=== PATIENT | female | born 1930 | race African-American/Black ===

== ENCOUNTER 2017-08-23 07:57 | Day surgery (SDC) | payer MEDICARE, MEDICAID ==
[2017-08-22 13:04] VITALS: BMI 22.6
[2017-08-23] MEDS ORDERED: CEFAZOLIN/Water 2 GM/20 ML SYRINGE ONE (08:44)
[2017-08-23] MEDS ORDERED: PROPOFOL 200 MG/20 ML VIAL ONE (15:07)
--- NOTE | 2017-08-24 13:50 | OP ---
DATE OF SURGERY: 08/23/2017 OPERATIVE PROCEDURE: Esophagogastroduodenoscopy with endoscopic gastrostomy tube placed. PREOPERATIVE DIAGNOSES: Dysphagia, failure to thrive, weight loss, severe dehydration. POSTOPERATIVE DIAGNOSES: 1. Gastric ulcer. 2. Successful placement of gastrostomy tube. PROCEDURE IN DETAIL: The patient was placed on her back and was given sedation by Anesthesia Departm ent. Also, the throat was anesthetized with Cetacaine spray. Then, the patient received IV antibiot ic before the procedure. A Pentax video gastroscope passed the upper esophageal sphincter into stoma ch and subsequently descending duodenum. The esophageal mucosa appeared normal. The GE junction, no pathology seen. The patient had a hiatal hernia. The fundus, cardia, gastric body, and gastric ant rum, no pathology seen. She does have a gastric ulcer. The duodenal bulb and descending duodenum, n o pathology seen. A G-tube site was marked by applying finger pressure over the abdominal wall. The site was cleaned and surgically prepped. The site was anesthetized with 1% Xylocaine infiltration. Over the site, a 16 Angiocath was advanced into the stomach. Through the Angiocath, a guidewire was advanced into the stomach. The guidewire was grasped with polypectomy site. There was . To t he end of the guidewire protruding outside of the mouth, a gastrostomy tube was connected. The wire was pulled back retrograde and the tube left in place. The patient rescoped again to confirm proper placement of G-tube. No complications noted. The stomach was decompressed and the scope removed. DISCHARGE PLANNING: This is an 86-year-old -[place] female referred to me by Dr. Marcus Espinosa do for a G-tube placement. She underwent G-tube placement. DISCHARGE RECOMMENDATIONS: The patient is being discharged back to halfway. . We will al so start the patient on omeprazole 40 once a day.
== END 2017-08-23 11:35 | disposition home or self-care (01) ==
LOC: SDC 07:57
PROVIDERS: ATTEND Internal Medicine Gastroenterology
PROC: 0DH63UZ Insertion of Feeding Device into Stomach, Percutaneous Approach (ICD-10-PCS; principal; 2017-08-23)
DX: K25.9 Gastric ulcer, unspecified as acute or chronic, without hemorrhage or perforation (principal); E86.0 Dehydration; K44.9 Diaphragmatic hernia without obstruction or gangrene; R13.10 Dysphagia, unspecified; R62.7 Adult failure to thrive; Z68.22 Body mass index [BMI] 22.0-22.9, adult; Z79.82 Long term (current) use of aspirin; Z79.899 Other long term (current) drug therapy
CPT/HCPCS: J2704